=== PATIENT | male | born 1950 | race Caucasian/White ===

== ENCOUNTER 2023-01-01 08:47 | Outpatient (CLI) | payer MEDICARE, SELFPAY ==
--- NOTE | ~2023-01-01 | CT_ITS ---
CT Scan of the Chest without Contrast: Clinical Indication: Lung cancer screening, personal history of nicotine dependence Technique: Contiguous sections were acquired throughout the chest without intravenous contrast. Dose reduction technique was used on this scan by utilizing automated exposure control and iterative recon struction technique. The dose-length product (DLP) was 129.68 mGy-cm. Findings: There is no evidence of any significant mediastinal, hilar or axillary lymphadenopathy. Small calcifi ed mediastinal and hilar lymph nodes are present. There are atherosclerotic calcifications of the aor ta and coronary arteries. There is no evidence of pleural or pericardial effusion. Scattered calcified granuloma are present. There is a 4 mm noncalcified nodule at the extreme right l clifford base (axial image 106). There is a 3 mm nodule at the lingula (axial image 84). Images through the upper abdomen reveal no abnormalities. Impression: Lung RADS 2: Benign appearance. 12 month follow-up screening CT advised. Reviewed, dictated and finalized at location . [facility] Impression: Lung RADS 2: Benign appearance. 12 month follow-up screening CT advised.
== END 2023-01-01 08:48 | disposition home or self-care (01) ==
PROVIDERS: PCP Family Medicine; Visit Provider Family Medicine
DX: Z12.2 Encounter for screening for malignant neoplasm of respiratory organs (principal); Z87.891 Personal history of nicotine dependence
CPT/HCPCS: 71271

== ENCOUNTER 2023-03-12 01:52 | Day surgery (SDC) | payer MEDICARE, SELFPAY ==
[2023-02-14 13:13] VITALS: BMI 26.8
--- NOTE | 2023-03-10 10:16 | SUR.PREOP ---
Patient called regarding upcoming procedure. Reviewed preop instructions, appointment times, and procedure prep.
[2023-03-12 08:01] VITALS: BP 157/81; PULSE 59; RESP 18; TEMP 35.8; O2SAT 99
[2023-03-12] MEDS: LACTATED RINGERS 1,000 ML 150 ML IV CONT (08:05)
--- NOTE | 2023-03-12 09:08 | PM.HPGS ---
History of Present Illness History of Present Illness Consent: Risks, benefits, and alternatives have been discussed and questions answered. Patient agrees to proceed with procedure. Chief complaint: neoplasm screening Narrative: Sathya Roque is a 73 year old male with colon polyp 7 years ago Review of Systems Constitutional: Constitutional: Denies headache(s) and Denies weakness Eyes: Eyes: Denies blurry vision ENT: Reports Normal hearing present, Denies headache(s) and Denies neck pain Cardiovascular: Cardiovascular: Denies chest pain and Denies dyspnea Respiratory: Respiratory: Denies dyspnea Gastrointestinal: Gastrointestinal: Reports no additional gastrointestinal complaints Genitourinary: Genitourinary: Denies dysuria Musculoskeletal: Musculoskeletal: Denies neck pain Integumentary/Breasts: Skin/Breast: Denies dry skin Neurologic: Reports Normal hearing present, Denies headache(s) and Denies weakness Psychiatric: Psychiatric: Denies anxiety Endocrine: Endocrine: Denies change in body appearance Hematologic/Lymphatic: Hematologic/Lymphatic: Denies easy bleeding Allergic/Immunologic: Allergic/Immunologic: Denies urticaria PMFSH Past Medical History Medical History Colon polyp Right inguinal hernia Screening for colon cancer Smoker Surgical History Surgical History H/O foot surgery Hx of cholecystectomy Family History Family History Father Hypertension Other Diabetes mellitus Family history of allergic disorder Social History Social History Smoking packs per day: 2 Smoking cigarettes per day: 40.0 Years smoked: 25 Smoking pack-years: 50.00 Smoking status: Former smoker Tobacco type: cigarettes Smoking end date: 02/24/11 Alcohol intake: current Drinks per week: 6 Substance use: never Substance use type: does not use Living arrangements: with family Occupation/Education: occupation 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 Spiritual care concerns: No Agree to blood products: Yes Meds Home Medications and Allergies Home Medications Medication Instructions Recorded Confirmed Type sildenafil 100 mg tablet 100 mg PO DAILY PRN sexual 10/22/21 03/12/23 Rx activity #30 tabs hydrochlorothiazide 12.5 mg tablet 12.5 mg PO DAILY 03/12/23 03/12/23 History lisinopril 40 mg tablet 40 mg PO DAILY 03/12/23 03/12/23 History simvastatin 20 mg tablet 20 mg PO DAILY 03/12/23 03/12/23 History Allergies Allergy/AdvReac Type Severity Reaction Status Date / Time No Known Allergies Allergy Verified 03/12/23 08:00 Vital Signs Vital Signs - 24 hr 03/12/23 08:01 Temperature 96.5 F L Pulse Rate 59 L Respiratory Rate 18 Blood Pressure 157/81 H Pulse Oximetry 99 Oxygen Delivery Room Air Exam Const: General: comfortable and no acute distress HENMT: Face/Nose/Sinus: Normal nares present Eyes: General: appearance normal, both eyes and all related structures Neck: Neck: no JVD Resp: Auscultation: clear to auscultation bilaterally Cardio: Rate: regular rate Rhythm: regular rhythm GI: Inspection: non-distended GI Palp: Yes Soft to palpation Skin: General skin exam: normal color Neuro: General: gait normal Speech: normal speech Extrem: General: normal to inspection Psych: Mental Status: mental status grossly normal Assessment and Plan Assessment and plan (1) Colon polyp: Code(s): K63.5 - Polyp of colon Status: Acute Assessment and Plan: colonoscopy
--- NOTE | 2023-03-12 09:13 | P.PNAN_ITS ---
Anes - Initial Pre Proc Eval Procedure: Operation Date: 03/12/23 09:30 Proposed Procedures p Screening Colonoscopy - Andrew Brantley MD Date/Time: 03/12/23 09:13 Surgeon: Andrew Brantley MD Pre Op Diagnosis: neoplasm screening Patient Data Age: 73 Gender: M Height: 1.73 m Weight: 83.4 kg Last Vital Signs Temp 96.5 F L 03/12/23 08:01 Pulse 59 L 03/12/23 08:01 Resp 18 03/12/23 08:01 BP 157/81 H 03/12/23 08:01 Pulse Ox 99 03/12/23 08:01 O2 Del Method Room Air 03/12/23 08:01 Allergies Allergy/AdvReac Type Severity Reaction Status Date / Time No Known Allergies Allergy Verified 03/12/23 08:00 Home Medications Medication Instructions Recorded Confirmed Type sildenafil 100 mg tablet 100 mg PO DAILY PRN sexual 10/22/21 03/12/23 Rx activity #30 tabs hydrochlorothiazide 12.5 mg tablet 12.5 mg PO DAILY 03/12/23 03/12/23 History lisinopril 40 mg tablet 40 mg PO DAILY 03/12/23 03/12/23 History simvastatin 20 mg tablet 20 mg PO DAILY 03/12/23 03/12/23 History Patient hx anesthesia problems: none Family hx anesthesia problems: none Results Review: All pre-operative results and documents have been reviewed as part of the pre- operative evaluation. [facility] Past Medical History Medical History Colon polyp Right inguinal hernia Screening for colon cancer Smoker Surgical History Surgical History H/O foot surgery Hx of cholecystectomy Family History Family History Father Hypertension Other Diabetes mellitus Family history of allergic disorder Social History Social History Smoking packs per day: 2 Smoking cigarettes per day: 40.0 Years smoked: 25 Smoking pack-years: 50.00 Smoking status: Former smoker Tobacco type: cigarettes Smoking end date: 02/24/11 Alcohol intake: current Drinks per week: 6 Substance use: never Substance use type: does not use Living arrangements: with family Occupation/Education: occupation 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 Informed Consent: The patient's anesthetic plan and its attendant risks and benefits were discussed with the patient/family/POA. Questions were solicited and answers provided to the satisfaction of the patient/family/POA.
[2023-03-12 09:31] VITALS: BP 95/65; PULSE 67; RESP 22; O2SAT 97
[2023-03-12 09:41] VITALS: BP 117/67; PULSE 50; RESP 15; O2SAT 97
[2023-03-12 09:51] VITALS: BP 126/82; PULSE 60; RESP 18; O2SAT 97
== END 2023-03-12 10:02 | disposition home or self-care (01) ==
PROVIDERS: PCP Family Medicine; Visit Provider Internal Medicine Gastroenterology
PROC: 0DJD8ZZ Inspection of Lower Intestinal Tract, Via Natural or Artificial Opening Endoscopic (ICD-10-PCS; CPT 45378; principal; 2023-03-12 09:30)
DX: Z12.11 Encounter for screening for malignant neoplasm of colon (principal); D12.0 Benign neoplasm of cecum; D12.3 Benign neoplasm of transverse colon; K57.30 Diverticulosis of large intestine without perforation or abscess without bleeding; K64.8 Other hemorrhoids; Z87.891 Personal history of nicotine dependence
CPT/HCPCS: 45385; 88305; J2704; J7120